=== PATIENT | female | born 2000 | race African-American/Black ===

== ENCOUNTER 2019-02-12 06:59 | Emergency (ER) | payer OTHER ==
[~2019-02-12] VITALS: Ht 170.2 cm; Wt 119.1 kg
[2019-02-12 07:32] LABS: BASO % 0.3 % (0.0-2.0); EOS # 0.1 (0.0-0.7); EOS % 1.7 % (0-4.0); GRAN # 2.4 (1.4-6.5); GRAN % 33.5 % (42.2-75.2); HEMATOCRIT 38.3 % (35.0-45.0); HEMOGLOBIN 12.5 g/dl (12.0-15.0); LYMPH # 4.1 (1.2-3.4); MEAN CELL VOLUME 91 fl (80.0-95.0); MEAN CORPUSCULAR HEMOGLOBIN 30 pg (26.0-32.0); MEAN CORPUSCULAR HGB CONC 33 g/dl (33.0-37.0); MEAN PLATELET VOLUME 10.9 fl (7.4-10.4); MONO # 0.5 (0.1-0.6); MONO % 6.4 % (1.7-9.3); PLATELET COUNT 257 K/mm3 (130-400); RED BLOOD COUNT 4.22 M/mm3 (4.10-5.30); REDCELL DISTRIBUTION WIDTH-CV 13.2 % (11.5-14.5)
[2019-02-12 07:32] LABS: COLLECTION METHOD CLEAN CATCH
[2019-02-12 07:39] LABS: MUCOUS Present /lpf; PH 5 (5-8); SQUAMOUS EPITHELIAL 0-2 /hpf; URINE APPEARANCE Clear; URINE BACTERIA None Seen /hpf; URINE BILIRUBIN Negative (NEGATIVE); URINE BLOOD 3+ (NEGATIVE); URINE COLOR Yellow; URINE GLUCOSE Negative (NEGATIVE); URINE KETONE Negative (NEGATIVE); URINE LEUKOCYTE ESTERASE Negative (NEGATIVE); URINE NITRATE Negative (NEGATIVE); URINE PROTEIN(semi-quant) Negative (NEGATIVE); URINE UROBILINOGEN Negative (NEGATIVE)
[2019-02-12 07:43] LABS: BILIRUBIN,TOTAL 0.7 mg/dL (0.0-1.0); C-REACTIVE PROTEIN 0.8 mg/dL (0.0-0.9); CALCIUM 8.9 mg/dL (8.4-10.2); CREATININE, serum 0.67 (0.52-1.25); POTASSIUM 3.4 mmol/L (3.4-5.0); TOTAL PROTEIN 8.2 gm/dL (6.4-8.2)
[2019-02-12] MEDS ORDERED: PROTONIX 40MG T40 MG PO (09:44)
[2019-02-12] MEDS ORDERED: ZOFRAN ODT4 MG PO (09:44)
[2019-02-12 10:11] VITALS: BP 111/56; PULSE 76; TEMP 98.6
== END 2019-02-12 10:09 | disposition home or self-care (01) ==
LOC: COL.ER 06:59
PROVIDERS: Emergency Medicine
DX: K29.70 Gastritis, unspecified, without bleeding (principal)
CPT/HCPCS: J2405; J7030

== ENCOUNTER → 2019-03-18 | Outpatient (CLI) | payer OTHER ==
[~2019-03-18] MED LIST: PROTONIX 40MG T40 MG PO; ZOFRAN ODT4 MG PO
== END ==
LOC: COL.RAD 07:33
DX: K80.20 Calculus of gallbladder without cholecystitis without obstruction (principal)

== ENCOUNTER 2019-04-08 10:29 | Day surgery (SDC) | payer OTHER ==
[~2019-04-08] VITALS: Ht 170.2 cm; Wt 118.1 kg
--- NOTE | 2019-04-08 11:04 | NUR ---
Initial visit; Patient thanked Communication Analyst for offering prayer and encouragement prior to her surgical procedure and rapid and thorough healing.
[2019-04-08 11:12] VITALS: BP 119/54; PULSE 66; TEMP 97.9
[2019-04-08] MEDS ORDERED: ZOFRAN 4MG T4 MG/TAB PO (11:18)
[2019-04-08] MEDS ORDERED: PROTONIX 40MG T40 MG PO (11:18)
--- NOTE | 2019-04-08 11:19 | NUR ---
TO RM AT 1040- USED [facility] TO GET HERE WILL BE COMING LATER AND THEY WILL USE [facility] TOGETHER FOR RIDE HOME CALL LIGHT IN REACH
[2019-04-08] MEDS ORDERED: MOTRIN 600600 MG/TAB PO (14:08)
[2019-04-08] MEDS ORDERED: PERCOCET 325 MG1 TA2 PO (14:08)
[2019-04-08 14:50] VITALS: BP 118/80; PULSE 60; TEMP 97.3
--- NOTE | 2019-04-08 14:50 | NUR ---
TO RM 7 PER CART FROM PACU. ALERT ORIENTED X3, TALKING TO STAFF. C/O PAIN 4/10 AND RESTLESS. RECEIVED WATER AND CRACKER. PATIENT ASKING FOR HER . CHECKED WAITING RM
[2019-04-08 15:05] VITALS: BP 105/48; PULSE 64
--- NOTE | 2019-04-08 15:05 | NUR ---
CONTINUED TO REQUEST TO SEE . I EXPLAINED HE WAS NOT HERE. PATIENT RECEIVED HIS PHONE AND TEXTED HIM. ATE A BIT OF CRACKER AND A SIP OF WATER. C/O PAIN 11/23 AND REQUESTING PAIN MEDICATION.
--- NOTE | 2019-04-08 15:10 | NUR ---
UPON SCANNING PAIN MEDICATION, PATIENT BECAME VERY NAUSEATED AND DRY HEAVES. DID NOT RECEIVE PAIN MEDICATION INSTEAD SHE RECEIVED PHENERGAN 6.25MG IV. LOWERED HEAD OF BED.
[2019-04-08 15:20] VITALS: BP 121/71; PULSE 68
--- NOTE | 2019-04-08 15:20 | NUR ---
AWAKENS EASILY, DENIES PAIN OR NAUSEA AND FELL BACK TO SLEEP.
[2019-04-08 15:50] VITALS: BP 122/76; PULSE 63
--- NOTE | 2019-04-08 15:50 | NUR ---
AMBULATED TO BATHROOM WITH ASSIST AND TOLERATED WELL. VOIDED AND AMBULATED BACK TO . UPON AMBULATING BACK TO BED, PATIENT C/O INCREASED PAIN AND NO NAUSEA.
--- NOTE | 2019-04-08 16:10 | NUR ---
RECEIVED A PERCOCET 1 TAB PATIENT AGAIN SAID SHE TEXTED HER AND HE IS ON HIS WAY. RECEIVED 2 NEW WARM BLANKETS AND PATIENT SLEEPING.
[2019-04-08 16:30] VITALS: BP 123/70; PULSE 70
--- NOTE | 2019-04-08 16:30 | NUR ---
DISCONTINUED IV AND INT- SO PATIENT CAN GET DRESSED.
--- NOTE | 2019-04-08 17:05 | NUR ---
RECEIVED DISCHARGE INSTRUCTIONS AND VERBALIZED UNDERSTANING PATIENT IS AT [facility]. ADMISSION DESK ASK HIM TO COME TO SURGICAL SERVICES.
--- NOTE | 2019-04-08 17:20 | NUR ---
DISCHARGED PER WC BY NURSING STAFF TO PRIVATE CAR IN CARE OF PER UBER.
== END 2019-04-08 17:27 | disposition home or self-care (01) ==
LOC: SDCO 10:29
DX: K80.10 Calculus of gallbladder with chronic cholecystitis without obstruction (principal)
CPT/HCPCS: J0330; J0690; J1100; J1885; J2405; J2550; J2704; J2710; J3010; J7120